=== PATIENT | male | born 1955 | race Two or more races ===

== ENCOUNTER 2019-03-06 11:22 | Inpatient (IN) | payer MEDICARE, OTHER ==
--- NOTE | 2019-03-06 11:39 | PDOC ---
History of Present Illness - General Stated Complaint: Chest Pain Time Seen by Provider: 03/06/19 11:39 - History of Present Illness Initial Comments: 64 year old male with PMH of HTN, HLD, and GERD presenting with acute left sided flank pain. He describes a left sharp pain radiating from his left mid back to his left flank and down is groin. He actually experiences this pain a few times per month and has received outpatient CT scans that are negative for nephroliths but did have note of fatty liver (previous alcoholic , sober 3 years) and right sided renal cyst. He also has dysuria approximately one time a month but denies hematuria. Deneis fevers, chills, nausea, vomiting, diarrhea, abdominal pain. 03/06/19 11:58 Past History - Past Medical History Allergies/Adverse Reactions: Allergies Allergy/AdvReac Type Severity Reaction Status Date / Time chlordiazepoxide HCl Allergy Verified 09/18/15 18:41 [From Librium] Home Medications: Ambulatory Orders Aspirin [ASA -] 81 mg PO DAILY 05/07/15 Alprazolam [Xanax] 1 mg PO TID PRN 03/06/19 Atorvastatin Ca [Lipitor] 20 mg PO HS 03/06/19 Budesonide/Formeterol Fumarate [SYMBICORT 160/4.5mcg -] 2 inh PO BID 03/06/19 Gabapentin 100 mg PO AM 03/06/19 Gabapentin 300 mg PO HS 03/06/19 Metformin HCl [Glucophage] 1,000 mg PO BID 03/06/19 Pantoprazole Sodium [Protonix] 40 mg PO DAILY 03/06/19 Sennosides [Senna -] 2 tab PO HS 03/06/19 Tamsulosin HCl [Flomax] 0.4 mg PO BID 03/06/19 Amlodipine Besylate [Norvasc -] 5 mg PO DAILY #30 tablet 03/07/19 Sitagliptin Phosphate [Januvia] 0.5 tab PO DAILY #30 tab 03/07/19 HTN: Yes - Immunization History Immunization Up to Date: Yes - Psycho Social/Smoking Cessation Hx Smoking Status: No Smoking History: Unknown if ever smoked Have you smoked in the past 12 months: No Number of Cigarettes Smoked Daily: 0 Cigars Per Day: 0 Hx Alcohol Use: Yes Drug/Substance Use Hx: No Substance Use Type: Alcohol Review of Systems - Review of Systems Constitutional: No: Chills, Diaphoresis, Fever HEENTM: No: Eye Pain, Blurred Vision, Tearing Respiratory: No: Cough, Orthopnea, Shortness of Breath Cardiac (ROS): No: Chest Pain, Edema, Irregular Heart Rate ABD/GI: Yes: Poor Appetite. No: Diarrhea, Nausea, Vomiting : Yes: Dysuria, Flank Pain. No: Burning, Discharge, Frequency, Hematuria, Incontinence Musculoskeletal: Yes: Back Pain. No: Joint Pain, Muscle Pain Integumentary: No: Bruising, Erythema, Flushing, Lesions Neurological: No: Headache, Numbness, Paresthesia Psychiatric: No: Anxiety, Depression Hematologic/Lymphatic: No: Anemia, Blood Clots, Easy Bleeding *Physical Exam - Physical Exam General Appearance: Yes: Nourished, Appropriately Dressed. No: Apparent Distress HEENT: positive: EOMI, PAMELA, Normal ENT Inspection, Normal Voice Neck: positive: Trachea midline, Normal Thyroid, Supple. negative: Tender, Rigid Respiratory/Chest: positive: Lungs Clear, Normal Breath Sounds. negative: Chest Tender, Respiratory Distress, Accessory Muscle Use Cardiovascular: positive: Regular Rhythm, Regular Rate Gastrointestinal/Abdominal: positive: Normal Bowel Sounds, Flat, Soft. negative : Tender Male Genitalia: positive: normal genitalia Lymphatic: negative: Adenopathy, Tenderness Musculoskeletal: positive: Normal Inspection, CVA Tenderness (left sided). negative: Decreased Range of Motion Extremity: positive: Normal Capillary Refill, Normal Inspection, Normal Range of Motion. negative: Tender Integumentary: positive: Normal Color, Dry, Warm ED Treatment Course - LABORATORY CBC & Chemistry Diagram: 03/07/19 06:50 03/07/19 06:50 Medical Decision Making - Medical Decision Making 64 year old male with PMH of HTN and remote EtOH abuse presenting with acute on chronic intermittent left flank/ back pain for the past few days. Given toradol without much relief. CT negative, UA negative. Labs corroborating ARIADNE (previous Cr four months prior 1.3 given verbally by CONTROL PANEL OPERATOR Louis Garcia). Patient's pain improved with Valium 5 PO but will admit for further renal workup given ariadne. 03/06/19 15:56 Discharge - Discharge Information Problems reviewed: Yes Clinical Impression/Diagnosis: ARIADNE (acute kidney injury) Condition: Stable Disposition: HOME - Admission Yes - Follow up/Referral - Patient Discharge Instructions - Post Discharge Activity
[2019-03-06] MEDS ORDERED: KETOROLAC TROMETHAMINE 30 MG/1 ML VIAL ONE (11:42)
[2019-03-06 13:03] LABS: URINE APPEARANCE CLEAR; URINE BILIRUBIN NEGATIVE (NEGATIVE); URINE COLOR YELLOW; URINE GLUCOSE (UA) NEGATIVE (NEGATIVE); URINE KETONE NEGATIVE (NEGATIVE); URINE LEUK ESTERASE NEGATIVE (NEGATIVE); URINE NITRITE NEGATIVE (NEGATIVE); URINE PROTEIN NEGATIVE (NEGATIVE); URINE UROBILINOGEN 0.2 mg/dL (0.2-1.0)
[2019-03-06 13:05] LABS: BASO % 0.4 % (0-2.0); EOS % 0.1 % (0-4.5); HEMATOCRIT 42.5 % (35.4-49); LYMPH % 8.3 % (8-40); MCHC 32.9 g/dl (32.0-35.9); MEAN CELL VOLUME 79.1 fl (80-96); MEAN PLT VOLUME 8.8 fl (7.5-11.1); MONO % 2.2 % (3.8-10.2); PLATELET COUNT 305 K/MM3 (134-434); RBC 5.38 M/mm3 (4.00-5.60); WHITE BLOOD COUNT 6.4 K/mm3 (4.0-10.0)
[2019-03-06 13:46] LABS: ALBUMIN 3.6 g/dl (3.4-5.0); ALK PHOS 71 U/L (45-117); ANION GAP 15 MMOL/L (8-16); BILIRUBIN,TOTAL 0.9 mg/dL (0.2-1); CALCIUM 9.3 mg/dL (8.5-10.1); CHLORIDE 102 mmol/L (98-107); CO2 19 mmol/L (21-32); CREATININE 1.9 mg/dL (0.55-1.3); GLUCOSE,RANDOM 131 mg/dL (74-106); POTASSIUM 3.8 mmol/L (3.5-5.1); SGOT/AST 11 U/L (15-37); SGPT/ALT 22 U/L (13-61); SODIUM 136 mmol/L (136-145); TOT PROT 7.5 g/dl (6.4-8.2)
--- NOTE | 2019-03-06 14:02 | PDOC ---
Documentation entered by Luc Rose SCRIBE, acting as scribe for Martin Melo MD. Martin Melo MD: This documentation has been prepared by the Milton monique Daniel, SCRIBE, under my direction and personally reviewed by me in its entirety. I confirm that the documentation accurately reflects all work, treatment, procedures, and medical decision making performed by me. Attending Attestation - Resident Resident Name: Monae Valdovinos - ED Attending Attestation I have performed the following: I have examined & evaluated the patient, The case was reviewed & discussed with the resident, I agree w/resident's findings & plan, Exceptions are as noted - HPI HPI: 03/06/19 13:11 The patient is a 64 year old male with a past medical history of HTN, HLD, and GERD here today for evaluation of left sided back and chest pain. Patient reports that he has had 6 years of intermittent left sided back pain which he attributes to his kidney. He notes that his current episode started 3 days ago, is getting worse, and describes it as intermittent left sided back and flank pain that is worse in the morning and wakes him from sleep. He also notes left sided non exertional intermittent chest pain and associated shortness of breath that started at the same time. Pt note extensive workup in the pas including muliple CTs, stress tests years ago mike were nomal. Patient denies headache, lightheadedness. Denies fever, chills. Denies nausea, vomiting, diarrhea. PCP: Abimael Goyal - Physicial Exam PE: 03/06/19 13:12 GENERAL: The patient is awake, alert, and fully oriented, Nontoxic - in no acute distress. HEAD: Normocephalic, atraumatic. EYES: extraocular movements intact, sclera anicteric, conjunctiva clear. ENT: Normal voice, Moist mucous membranes. NECK: Normal range of motion, supple LUNGS: Breath sounds equal, clear to auscultation bilaterally. No wheezes, no rhonchi, no rales. HEART: Regular rate and rhythm, without murmur, rub or gallop. ABDOMEN: Soft, nontender, No guarding, no rebound.No CVA tenderness EXTREMITIES: Normal range of motion, no edema. No cyanosis. No erythema, or tenderness. Pulses symmetric on radial/dp. NEUROLOGICAL: No facial assymetry, Normal speech, PSYCH: Normal mood, normal affect. SKIN: Warm, Dry, normal turgor - Medical Decision Making 03/06/19 13:03 64y M hx of htn, hl, gerd prsents wit hworsening L flank/chest pain - it got worse approx 3 days ago, pain is sharp/pressure like in nature. pt endorse ssome sob when he has the pain but denies any fever/chils,, nv, cough, gar, and notably the pain does not wosen with exertion. Pt denies any numbnes/tingling/ ewakness. Pt endorses dysuria for a fw months ddx - consider possible kidney stone, msk pain, diverticulitis, acs consider ao dissecton - however pts b/l BP is similar (149/89, 156/86), also his symptoms are highly atypical of dissection will obtain labs, ct abd, ekg will erassess pt feeling better after toradol from EMS 03/06/19 16:05 labs reviwed Pts labs noted for warren ct noted thickened bladder wall but UA not suggestive of UTI/cystitis will admit for futher mngement and wokup of his pain Heart Score/ECG Review - ECG Impressions Comment:: 03/06/19 13:08 Twelve-lead EKG was performed and reviewed by me. There is normal sinus rhythm with a normal rate. Rate of 72 The axis is normal. The intervals are normal. There is normal R wave progression There are no ST or T wave abnormalities. Impression: Normal twelve-lead EKG
[2019-03-06] MEDS ORDERED: SODIUM CHLORIDE 0.9% 500 ML INFUS.BAG IV ONE (14:15)
[2019-03-06] MEDS ORDERED: diazePAM 2 MG TABLET PO ONE (14:50)
[2019-03-06] MEDS ORDERED: diazePAM 2 MG TABLET ONE (14:59)
--- NOTE | 2019-03-06 16:14 | EKG ---
Test Reason : Blood Pressure : / mmHG Vent. Rate : 072 BPM Atrial Rate : 072 BPM P-R Int : 134 ms QRS Dur : 084 ms QT Int : 398 ms P-R-T Axes : 043 035 047 degrees QTc Int : 435 ms NORMAL SINUS RHYTHM NORMAL ECG WHEN COMPARED WITH ECG OF 07-MAY-2015 12:42, NO SIGNIFICANT CHANGE WAS FOUND Confirmed by MARIIA ZEPEDA MD ([id number]) on 03/06/2019 4:13:40 PM Referred By: Confirmed By:MARIIA ZEPEDA MD
--- NOTE | 2019-03-06 17:35 | PN ---
Progress Note, Physician - Objective Vital Signs: Vital Signs Temperature 97.6 F 03/06/19 11:25 Pulse Rate 75 03/06/19 11:25 Respiratory Rate 20 03/06/19 11:25 Blood Pressure 142/70 03/06/19 11:25 O2 Sat by Pulse Oximetry (%) 100 03/06/19 11:25 Labs: CBC, BMP 03/06/19 12:35 03/06/19 12:35
[2019-03-06] MEDS ORDERED: SODIUM CHLORIDE 1,000 ML IV SCH (17:45)
--- NOTE | 2019-03-06 18:08 | HP ---
Admitting History and Physical - Primary Care Physician PCP: Abimael Goyal - Admission Chief Complaint: left flank pain History of Present Illness: 64 year old male with PMH of HTN, HLD, and GERD presenting with acute left sided flank pain. He describes the pain as sharp radiating from his left mid back to his left flank to groin. He has had similar pain and underwent w/u that was unremarkable for nephroliths but did have note of fatty liver (previous alcoholic , sober 3 years) and right sided renal cyst. He also has dysuria approximately one time a month but denies hematuria-takes flomax at home. Deneis fevers, chills, nausea, vomiting, diarrhea, abdominal pain. Of note his ACr was 1.9 with baseline 1.0-1.3. History Source: Patient Limitations to Obtaining History: No Limitations - Past Medical History Cardiovascular: Yes: HTN, Hyperlipdemia Gastrointestinal: Yes: GERD - Smoking History Smoking history: Never smoked Have you smoked in the past 12 months: No Aproximately how many cigarettes per day: 0 - Alcohol/Substance Use Hx Alcohol Use: Yes (sober x 3 yrs) History of Substance Use: reports: None - Social History Usual Living Arrangement: Yes: Alone Do you think of yourself as: Straight/Heterosexual ADL: Independent Occupation: unemployed History of Recent Travel: No Home Medications - Allergies Allergies/Adverse Reactions: Allergies Allergy/AdvReac Type Severity Reaction Status Date / Time chlordiazepoxide HCl Allergy Verified 09/18/15 18:41 [From Librium] - Home Medications Home Medications: Ambulatory Orders Aspirin [ASA -] 81 mg PO DAILY 05/07/15 Hydrochlorothiazide [Hctz -] 25 mg PO DAILY 05/07/15 Alprazolam [Xanax] 1 mg PO TID PRN 03/06/19 Atorvastatin Ca [Lipitor] 20 mg PO HS 03/06/19 Budesonide/Formeterol Fumarate [SYMBICORT 160/4.5mcg -] 2 inh PO BID 03/06/19 Gabapentin 100 mg PO AM 03/06/19 Gabapentin 300 mg PO HS 03/06/19 Glipizide [Glipizide ER] 5 mg PO BID 03/06/19 Metformin HCl [Glucophage] 1,000 mg PO BID 03/06/19 Pantoprazole Sodium [Protonix] 40 mg PO DAILY 03/06/19 Ramipril 5 mg PO DAILY 03/06/19 Sennosides [Senna] 2 tab PO HS 03/06/19 Sitagliptin Phosphate [Januvia] 1 tab PO DAILY 03/06/19 Tamsulosin HCl [Flomax] 0.4 mg PO BID 03/06/19 Family Medical History Family History: Denies Review of Systems - Review of Systems Constitutional: reports: No Symptoms Eyes: reports: No Symptoms HENT: reports: No Symptoms Neck: reports: No Symptoms Cardiovascular: reports: No Symptoms Respiratory: reports: No Symptoms Gastrointestinal: reports: Abdominal Pain (left lower quad pain) Genitourinary: reports: Dysuria, Flank Pain (left), Other (pain radiating to groin) Breasts: reports: No Symptoms Reported Musculoskeletal: reports: Back Pain (left mid back to flank) Integumentary: reports: No Symptoms Neurological: reports: No Symptoms Endocrine: reports: No Symptoms Hematology/Lymphatic: reports: No Symptoms Psychiatric: reports: No Symptoms Pain Intensity: 7 Physical Examination Vital Signs: Vital Signs Temperature 97.6 F 03/06/19 11:25 Pulse Rate 75 03/06/19 11:25 Respiratory Rate 20 03/06/19 11:25 Blood Pressure 142/70 03/06/19 11:25 O2 Sat by Pulse Oximetry (%) 100 03/06/19 11:25 Constitutional: Yes: Well Nourished, No Distress, Calm Eyes: Yes: WNL, Conjunctiva Clear, EOM Intact HENT: Yes: WNL, Atraumatic, Normocephalic Neck: Yes: WNL, Supple, Trachea Midline Cardiovascular: Yes: WNL, Regular Rate and Rhythm Respiratory: Yes: WNL, Regular, CTA Bilaterally Gastrointestinal: Yes: WNL, Normal Bowel Sounds ...Rectal Exam: Yes: Deferred Renal/: Yes: CVA Tenderness - Left, Other (TTP left flank to mid back) Musculoskeletal: Yes: Back Pain Extremities: Yes: WNL Edema: No Peripheral Pulses WNL: Yes Peripheral Pulses: Left Radial: 2+, Right Radial: 2+, Left Doralis Pedis: 2+, Right Dorsalis Pedis: 2+, Left Femoral: 2+, Right Femoral: 2+ Integumentary: Yes: WNL Neurological: Yes: WNL, Alert, Oriented ...Motor Strength: WNL Psychiatric: Yes: WNL Labs: CBC, BMP 03/06/19 12:35 03/06/19 12:35 Imaging - Results Cat Scan: Report Reviewed (No urinary calculi or obstructive uropathy, thickened all bladder, cystitis can not be excluded. No acute pathology in abd or pelvis) Ultrasound: Report Reviewed (No hydro, no calculi, right renal upper pole cyct noted) EKG: Report Reviewed (NSR, QTc 435, no ischemic changes) Problem List - Problems (1) HLD (hyperlipidemia) Assessment/Plan: c/w atorvastatin Code(s): E78.5 - HYPERLIPIDEMIA, UNSPECIFIED (2) GERD (gastroesophageal reflux disease) Assessment/Plan: c/w protonix Code(s): K21.9 - GASTRO-ESOPHAGEAL REFLUX DISEASE WITHOUT ESOPHAGITIS (3) H/O ETOH abuse Assessment/Plan: completed detox sober x 3 years Code(s): F10.11 - ALCOHOL ABUSE, IN REMISSION (4) ARIADNE (acute kidney injury) Assessment/Plan: Cr 1.9 from baseline of .9-1.2 additional 1L NS ordered and will cont @ 125 after avoid nephrotoxic agents will hold ramapril if cr does not decrease with hydration will consult nephrology pt has seen Dr Brandon in the past, will consult in am if pain persists/cr cont to increase Code(s): N17.9 - ACUTE KIDNEY FAILURE, UNSPECIFIED (5) HTN (hypertension) Assessment/Plan: hold ramapril with elevated Cr Code(s): I10 - ESSENTIAL (PRIMARY) HYPERTENSION Qualifiers: Hypertension type: essential hypertension Qualified Code(s): I10 - Essential (primary) hypertension (6) Prophylactic measure Assessment/Plan: FEN IV bolus 1L given in ED, will repeat another 1L bolus IVF @ 100cc/hr arter bolous monitor electrolytes and replete as needed low fat/chol diet NPO after mn if further testing is needed DVT low risk early ambulation Dispo admit to Dr Goyal to med/surg bed full code discharge planning Code(s): Z29.9 - ENCOUNTER FOR PROPHYLACTIC MEASURES, UNSPECIFIED (7) Diabetes Assessment/Plan: on oral hypoglycemic at home will hold until taking full PO BGM AC/HS with novolog sliding scale Code(s): E11.9 - TYPE 2 DIABETES MELLITUS WITHOUT COMPLICATIONS Visit type - Emergency Visit Emergency Visit: Yes ED Registration Date: 03/06/19 Care time: The patient presented to the Emergency Department on the above date and was hospitalized for further evaluation of their emergent condition. - New Patient This patient is new to me today: Yes Date on this admission: 03/06/19 - Critical Care Critical Care patient: No
[2019-03-06] MEDS ORDERED: SODIUM CHLORIDE 1,000 ML IV STA (18:28)
[2019-03-06] MEDS: ALBUTEROL SO4 2.5/IPRATROPIUM 0.5 INH SOL 3 ML VIAL.NEB. NEB SCH (21:10)
[2019-03-06] MEDS: SODIUM CHLORIDE 1,000 ML IV SCH (21:40)
[2019-03-06] MEDS: INSULIN SLIDING SCALE (NOVOLOG) 1 VIAL SQ SCH (21:41)
[2019-03-06] MEDS: TAMSULOSIN HCL 0.4 MG CAP PO SCH (21:41)
[2019-03-06] MEDS ORDERED: ATORVASTATIN CA 20 MG TABLET (FP) PO SCH (22:00)
[2019-03-06] MEDS ORDERED: SENNOSIDES 8.6MG TABLET (FP) PO SCH (22:00)
[2019-03-06] MEDS: BUDESONIDE/FORMETEROL FUMARATE 160/4.5 mcg INHALER IH SCH (22:05)
[2019-03-07] MEDS: ALBUTEROL SO4 2.5/IPRATROPIUM 0.5 INH SOL 3 ML VIAL.NEB. NEB SCH ×4 (00:01→12:06)
[2019-03-07 00:03] VITALS: BMI 33.4
[2019-03-07] MEDS: SODIUM CHLORIDE 1,000 ML IV SCH (06:00)
[2019-03-07] MEDS: INSULIN SLIDING SCALE (NOVOLOG) 1 VIAL SQ SCH ×2 (07:02→11:43)
[2019-03-07 08:21] LABS: BASO % 0.3 % (0-2.0); EOS % 1.1 % (0-4.5); HEMATOCRIT 37.7 % (35.4-49); HEMOGLOBIN 12.5 GM/dL (11.7-16.9); LYMPH % 21.5 % (8-40); MCH 26.3 pg (25.7-33.7); MCHC 33.1 g/dl (32.0-35.9); MEAN CELL VOLUME 79.6 fl (80-96); MEAN PLT VOLUME 8.8 fl (7.5-11.1); MONO % 8.1 % (3.8-10.2); PLATELET COUNT 254 K/MM3 (134-434); RBC 4.73 M/mm3 (4.00-5.60); RDW 15.8 % (11.9-15.9); WHITE BLOOD COUNT 8.7 K/mm3 (4.0-10.0)
[2019-03-07 08:34] LABS: INR 1.11 (0.83-1.09); PROTHROMBIN TIME (PATIENT) 13.1 SEC (9.7-13.0)
[2019-03-07 09:06] LABS: ALBUMIN 3.1 g/dl (3.4-5.0); BILIRUBIN,TOTAL 0.7 mg/dL (0.2-1); BLOOD UREA NITROGEN 27.1 mg/dL (7-18); CALCIUM 8.6 mg/dL (8.5-10.1); CREATININE 1.3 mg/dL (0.55-1.3); MAGNESIUM 1.7 mg/dL (1.8-2.4); POTASSIUM 3.5 mmol/L (3.5-5.1); TOT PROT 6.4 g/dl (6.4-8.2)
[2019-03-07] MEDS ORDERED: PT OWN MED DRAWER 7, Y5N ONE (09:45)
[2019-03-07] MEDS: TAMSULOSIN HCL 0.4 MG CAP PO SCH (09:46)
[2019-03-07] MEDS: BUDESONIDE/FORMETEROL FUMARATE 160/4.5 mcg INHALER IH SCH (09:49)
[2019-03-07] MEDS ORDERED: FLU VACCINE QUAD 60 MCG/0.5 ML (MDV 19-20) IM ONE (10:00)
[2019-03-07] MEDS ORDERED: PANTOPRAZOLE 40 MG TABLET (FP) PO SCH (10:00)
[2019-03-07] MEDS ORDERED: ASPIRIN 81 MG CHEWABLE TABLETS PO SCH (10:00)
[2019-03-07] MEDS ORDERED: SODIUM CHLORIDE 1,000 ML IV SCH (10:43)
[2019-03-07] MEDS ORDERED: ALPRAZolam 1 MG TABLET PO PRN (10:43)
--- NOTE | 2019-03-07 10:49 | PN ---
Progress Note, Physician Chief Complaint: Left CVA pain ARIADNE History of Present Illness: NAD Pain is improved He feels mild pain in left flank as well Wants to go home and f/u with Dr Gupta CT abd/pelvis+ renal U/S unremarkable Has had these pains for years - Current Medication List Current Medications: Active Medications Albuterol/Ipratropium (Duoneb -) 1 amp NEB RQ4H [facility] Last Admin: 03/07/19 08:19 Dose: 1 amp Alprazolam (Xanax) 1 mg PO TID PRN PRN Reason: ANXIETY Aspirin (Asa -) 81 mg PO DAILY [facility] Last Admin: 03/07/19 09:46 Dose: 81 mg Atorvastatin Calcium (Lipitor -) 20 mg PO HS [facility] Last Admin: 03/06/19 21:41 Dose: 20 mg Budesonide/Formoterol Fumarate (Symbicort 160/4.5mcg -) 2 puff IH BID [facility] Last Admin: 03/07/19 09:49 Dose: 2 puff Gabapentin (Neurontin -) 100 mg PO AM TIANNA Gabapentin (Neurontin -) 300 mg PO HS [facility] Sodium Chloride (Normal Saline -) 1,000 mls @ 75 mls/hr IV ASDIR [facility] Insulin Aspart (Novolog Vial Sliding Scale -) 1 vial SQ ACHS [facility]; Protocol Last Admin: 03/07/19 07:02 Dose: Not Given Pantoprazole Sodium (Protonix -) 40 mg PO DAILY [facility] Last Admin: 03/07/19 09:46 Dose: 40 mg Senna (Senna -) 2 tab PO HS [facility] Last Admin: 03/06/19 21:41 Dose: 2 tab Sitagliptin Phosphate (Januvia -) mg PO DAILY [facility] Tamsulosin HCl (Flomax -) 0.4 mg PO BID [facility] Last Admin: 03/07/19 09:46 Dose: 0.4 mg - Objective Vital Signs: Vital Signs Temperature 99 F 03/07/19 09:41 Pulse Rate 70 03/07/19 09:41 Respiratory Rate 20 03/07/19 09:41 Blood Pressure 147/76 03/07/19 09:41 O2 Sat by Pulse Oximetry (%) 96 03/06/19 19:46 Constitutional: Yes: Well Nourished, No Distress, Calm Cardiovascular: Yes: Regular Rate and Rhythm Respiratory: Yes: Regular Gastrointestinal: Yes: WNL Genitourinary: Yes: WNL Musculoskeletal: Yes: WNL Extremities: Yes: WNL Edema: No Peripheral Pulses WNL: Yes Neurological: Yes: Alert, Oriented Psychiatric: Yes: Alert, Oriented Labs: CBC, BMP 03/07/19 06:50 03/07/19 06:50 INR, PTT INR 1.11 (0.83-1.09) H 03/07/19 06:50 Problem List - Problems (1) ARIADNE (acute kidney injury) Assessment/Plan: -Cr improved, at baseline -Continue IVF at lower rate at 75cc/hr -Encouraged PO fluids -Labs outpatient -Urology consult -D/C HCTZ + Ramipril outpatient med -Will start amlodipine 5 mg po daily Problems reviewed: Yes Code(s): N17.9 - ACUTE KIDNEY FAILURE, UNSPECIFIED (2) Diabetes Assessment/Plan: -BGM AC HS -A1c at 5.8 -Decrease Januvia to 50 mg po daily -D/C glipizide -Diabetic low sodium diet Problems reviewed: Yes Code(s): E11.9 - TYPE 2 DIABETES MELLITUS WITHOUT COMPLICATIONS (3) H/O ETOH abuse Problems reviewed: Yes Code(s): F10.11 - ALCOHOL ABUSE, IN REMISSION (4) Anxiety Assessment/Plan: -Continue alprazolam Problems reviewed: Yes Code(s): F41.9 - ANXIETY DISORDER, UNSPECIFIED (5) Flank pain, chronic Assessment/Plan: -Intermittent from past 6 years -Urology eval -CT abd/pelvis, no acute pathology, cystitis couldn't be ruled out -Check UC -Pt will f/u with Dr Gupta o/p -Encouraged PO fluids Problems reviewed: Yes Code(s): R10.9 - UNSPECIFIED ABDOMINAL PAIN; G89.29 - OTHER CHRONIC PAIN Assessment/Plan see problem list
[2019-03-07] MEDS ORDERED: ACETAMINOPHEN 325 MG TABLET (FP) PO PRN (12:39)
[2019-03-07 15:12] VITALS: BP 134/71; PULSE 77; TEMP 98.5
[2019-03-07] MEDS ORDERED: GABAPENTIN 100 MG CAPSULE (FP) PO SCH (22:00)
[2019-03-08] MEDS ORDERED: GABAPENTIN 100 MG CAPSULE (FP) PO SCH (07:00)
== END 2019-03-07 15:29 | disposition home or self-care (01) | DRG 684 ==
LOC: JER 11:22 → JERBED 15:54 → J5S 18:41
PROVIDERS: ADMIT Family Medicine; ATTEND Family Medicine
DX: N17.9 Acute kidney failure, unspecified (principal); I10 Essential (primary) hypertension; E78.5 Hyperlipidemia, unspecified; K21.9 Gastro-esophageal reflux disease without esophagitis; E11.9 Type 2 diabetes mellitus without complications; R10.9 Unspecified abdominal pain; N28.1 Cyst of kidney, acquired; F10.11 Alcohol abuse, in remission
CPT/HCPCS: 36415; 71045-TC-FY; 74176-TC; 76775-TC; 80053; 81003; 82150; 82962; 83036; 83690; 83735; 84484; 85025; 85610; 87086; 87186; 93005; 93010; 94640; 99285-25; J7030

== ENCOUNTER 2020-07-17 10:57 | Inpatient (IN) | payer MEDICARE, OTHER ==
[2020-07-17 12:42] LABS: BASO % 0.9 % (0-2.0); EOS % 0.8 % (0-4.5); HEMOGLOBIN 12.6 GM/dL (11.7-16.9); LYMPH % 7.8 % (8-40); MCH 25.4 pg (25.7-33.7); MEAN CELL VOLUME 74.8 fl (80-96); MEAN PLT VOLUME 8.3 fl (7.5-11.1); MONO % 12.4 % (3.8-10.2); NEUT % 78.1 % (42.8-82.8); PLATELET COUNT 589 K/MM3 (134-434); RBC 4.94 M/mm3 (4.00-5.60); RDW 15.6 % (11.9-15.9); WHITE BLOOD COUNT 10.6 K/mm3 (4.0-10.0)
[2020-07-17 12:58] LABS: CHLORIDE 104 mmol/L (98-107); SODIUM 136 mmol/L (136-145)
[2020-07-17 13:01] LABS: ANION GAP 8 MMOL/L (8-16); BLOOD UREA NITROGEN 12.9 mg/dL (7-18); CALCIUM 8.4 mg/dL (8.5-10.1); CO2 24 mmol/L (21-32); LIPASE 165 U/L (73-393)
[2020-07-17 13:02] LABS: GLUCOSE,RANDOM 115 mg/dL (74-106); MAGNESIUM 2.1 mg/dL (1.8-2.4)
[2020-07-17 13:03] LABS: ACTIVATED PTT 31.6 SECONDS (25.2-36.5); INR 1.4 (0.83-1.09); PROTHROMBIN TIME (PATIENT) 16.8 SEC (9.7-13.0)
[2020-07-17 13:04] LABS: CREATININE 1.1 mg/dL (0.55-1.3); SGOT/AST 331 U/L (15-37); SGPT/ALT 196 U/L (13-61)
[2020-07-17 13:05] LABS: BILIRUBIN,TOTAL 1.6 mg/dL (0.2-1)
[2020-07-17 13:06] LABS: ALK PHOS 196 U/L (45-117)
[2020-07-17 13:09] LABS: N-TERMINAL BNP 418.8 pg/ml (5-125)
[2020-07-17] MEDS ORDERED: DEXAMETHASONE SOD PHOSPHATE 4 MG/1 ML VIAL IVPUSH ONE (13:28)
[2020-07-17] MEDS ORDERED: DEXAMETHASONE SOD PHOSPHATE 10 MG/1 ML VIAL ONE (13:52)
[2020-07-17 14:30] LABS: PLATELET ESTIMATE SLT INCREASE
[2020-07-17 14:32] LABS: LDH 631 U/L (87-246)
[2020-07-17 15:03] LABS: EPI CELLS 7 /uL (0-25.1); HYALINE CASTS 1 /uL (0-3.1); URINE APPEARANCE CLEAR; URINE BACTERIA 1200 /uL (0-1359); URINE BILIRUBIN NEGATIVE (NEGATIVE); URINE COLOR DK YELLOW; URINE GLUCOSE (UA) NEGATIVE (NEGATIVE); URINE KETONE NEGATIVE (NEGATIVE); URINE LEUK ESTERASE NEGATIVE (NEGATIVE); URINE NITRITE NEGATIVE (NEGATIVE); URINE PROTEIN 1+ (NEGATIVE); URINE RBC 51 /uL (0-23.9); URINE UROBILINOGEN 4.0 E.U/dl mg/dL (0.2-1.0); URINE WBC 13 /uL (0-25.8)
[2020-07-18 07:29] LABS: BASO % 0.4 % (0-2.0); EOS % 0.1 % (0-4.5); HEMATOCRIT 35.8 % (35.4-49); LYMPH % 8.7 % (8-40); MCH 25.1 pg (25.7-33.7); MCHC 33.4 g/dl (32.0-35.9); MEAN CELL VOLUME 75.1 fl (80-96); MEAN PLT VOLUME 8.4 fl (7.5-11.1); MONO % 7.7 % (3.8-10.2); NEUT % 83.1 % (42.8-82.8); PLATELET COUNT 541 K/MM3 (134-434); RBC 4.78 M/mm3 (4.00-5.60); RDW 15.4 % (11.9-15.9); WHITE BLOOD COUNT 10.1 K/mm3 (4.0-10.0)
[2020-07-18 07:58] LABS: POTASSIUM 4.4 mmol/L (3.5-5.1)
[2020-07-18 08:01] LABS: CALCIUM 8.6 mg/dL (8.5-10.1)
[2020-07-18 08:02] LABS: ALBUMIN 2.1 g/dl (3.4-5.0); BLOOD UREA NITROGEN 16.9 mg/dL (7-18); MAGNESIUM 2.2 mg/dL (1.8-2.4)
[2020-07-18 08:05] LABS: PHOSPHOROUS 3.3 mg/dL (2.5-4.9)
[2020-07-18 08:06] LABS: BILIRUBIN,TOTAL 0.9 mg/dL (0.2-1)
[2020-07-18 08:07] LABS: TOT PROT 7.9 g/dl (6.4-8.2)
[2020-07-18] MEDS ORDERED: ENOXAPARIN NA (PORCINE) 40 MG/0.4 ML DISP.SYRIN SQ ONE (09:25)
[2020-07-18] MEDS: ENOXAPARIN NA (PORCINE) 40 MG/0.4 ML DISP.SYRIN SQ SCH (09:32)
[2020-07-18 10:33] LABS: ANISOCYTOSIS 1+; MACROCYTOSIS 0; PLATELET ESTIMATE INCREASED
[2020-07-18] MEDS ORDERED: LORazepam 2 MG TABLET PO ONE (10:34)
[2020-07-18] MEDS ORDERED: ASCORBIC ACID 500 MG TABLET (FP) ONE (10:47)
[2020-07-18] MEDS ORDERED: CEFTRIAXONE 1 GM/50 ML BAG ONE (10:48)
[2020-07-18] MEDS ORDERED: AZITHROMYCIN IVPB 500 MG/250 ML BAG IVPB ONE (10:48)
[2020-07-18] MEDS ORDERED: ZINC SULFATE 220 MG CAPSULE (FP) ONE (10:48)
[2020-07-18] MEDS: ZINC SULFATE 220 MG CAPSULE (FP) PO SCH (11:03)
[2020-07-18] MEDS: ASCORBIC ACID 500 MG TABLET (FP) PO SCH ×2 (11:04→22:20)
[2020-07-18] MEDS: CEFTRIAXONE 1,000 MG in DEXTROSE 5%-WATER - 50 ML IVPB SCH (11:04)
[2020-07-18] MEDS ORDERED: DEXAMETHASONE SOD PHOSPHATE 4 MG/1 ML VIAL ONE (11:37)
[2020-07-18] MEDS: AZITHROMYCIN IVPB 500 MG in DEXTROSE 5%-WATER - 250 ML IVPB SCH (12:54)
[2020-07-18] MEDS: DEXAMETHASONE SOD PHOSPHATE 4 MG/1 ML VIAL IVPUSH SCH (12:55)
[2020-07-18 20:24] VITALS: BMI 32.2
[2020-07-19] MEDS ORDERED: ALPRAZolam 1 MG TABLET PO PRN (09:48)
[2020-07-19] MEDS ORDERED: PT OWN MED DRAWER 7, Y5N ONE (11:00)
[2020-07-19] MEDS: ENOXAPARIN NA (PORCINE) 40 MG/0.4 ML DISP.SYRIN SQ SCH (11:05)
[2020-07-19] MEDS: DEXAMETHASONE SOD PHOSPHATE 4 MG/1 ML VIAL IVPUSH SCH (11:06)
[2020-07-19] MEDS: ASCORBIC ACID 500 MG TABLET (FP) PO SCH ×2 (11:06→21:16)
[2020-07-19] MEDS: ZINC SULFATE 220 MG CAPSULE (FP) PO SCH (11:06)
[2020-07-19] MEDS ORDERED: guaiFENesin/D-METHORPHAN HB 10 ML UNIT-DOSE CUPS PO PRN (11:40)
[2020-07-19 11:59] LABS: BASO % 0.4 % (0-2.0); HEMATOCRIT 37.5 % (35.4-49); HEMOGLOBIN 12.3 GM/dL (11.7-16.9); LYMPH % 8.6 % (8-40); MCH 24.6 pg (25.7-33.7); MCHC 32.8 g/dl (32.0-35.9); MEAN CELL VOLUME 75.1 fl (80-96); MEAN PLT VOLUME 8.3 fl (7.5-11.1); MONO % 12.2 % (3.8-10.2); NEUT % 78.8 % (42.8-82.8); PLATELET COUNT 566 K/MM3 (134-434); RBC 4.99 M/mm3 (4.00-5.60); RDW 15.7 % (11.9-15.9); WHITE BLOOD COUNT 11.5 K/mm3 (4.0-10.0)
[2020-07-19] MEDS ORDERED: AZITHROMYCIN IVPB 500 MG/250 ML BAG IVPB SCH (12:03)
[2020-07-19] MEDS ORDERED: CEFTRIAXONE 1 GM in DEXTROSE 5%-WATER - 50 ML IVPB SCH (12:05)
[2020-07-19] MEDS ORDERED: cefTRIAXone SODIUM 1 GM VIAL ONE (12:11)
[2020-07-19] MEDS ORDERED: DEXTROSE 5%-WATER - 50 ML IVPB ONE (12:11)
[2020-07-19 12:19] LABS: POTASSIUM 4.2 mmol/L (3.5-5.1)
[2020-07-19 12:20] LABS: ALBUMIN 2.2 g/dl (3.4-5.0); BLOOD UREA NITROGEN 24.6 mg/dL (7-18); CALCIUM 8.9 mg/dL (8.5-10.1)
[2020-07-19 12:24] LABS: CREATININE 0.9 mg/dL (0.55-1.3)
[2020-07-19 12:26] LABS: BILIRUBIN,TOTAL 0.6 mg/dL (0.2-1); TOT PROT 7.8 g/dl (6.4-8.2)
[2020-07-19] MEDS: URSODIOL 300 MG CAPSULE PO SCH ×2 (12:28→21:15)
[2020-07-19] MEDS: TAMSULOSIN HCL 0.4 MG CAP PO SCH ×2 (12:28→21:16)
[2020-07-19] MEDS: PANTOPRAZOLE 40 MG TABLET PO SCH (12:28)
[2020-07-19] MEDS: ASPIRIN 81 MG CHEWABLE TABLETS PO SCH (12:28)
[2020-07-19] MEDS: amLODIPine BESYLATE 5 MG TABLET (FP) PO SCH (12:29)
[2020-07-19] MEDS: BUDESONIDE/FORMETEROL FUMARATE 160/4.5 mcg INHALER IH SCH ×2 (12:33→21:15)
[2020-07-19] MEDS: CEFTRIAXONE 1,000 MG in DEXTROSE 5%-WATER - 50 ML IVPB SCH (12:33)
[2020-07-19] MEDS: AZITHROMYCIN IVPB 500 MG in DEXTROSE 5%-WATER - 250 ML IVPB SCH (12:33)
[2020-07-19 12:49] LABS: ANISOCYTOSIS 0; MACROCYTOSIS 0; PLATELET ESTIMATE INCREASED
[2020-07-19 18:55] LABS: METHADONE, UR NEGATIVE ng/ml (CUTOFF=300); OPIATES, URI NEGATIVE ng/ml (CUTOFF=300); URINE BARBITURATES NEGATIVE ng/ml (CUTOFF=200)
[2020-07-19 18:56] LABS: COCAINE, UR NEGATIVE ng/ml (CUTOFF=300); PHENCYCLIDINE,URINE NEGATIVE ng/ml (CUTOFF=25)
[2020-07-19 19:05] LABS: URINE AMPHETAMINES NEGATIVE ng/ml (CUTOFF=500)
[2020-07-19 19:07] LABS: URINE BENZODIAZEPINES POSITIVE ng/ml (CUTOFF=200)
[2020-07-19] MEDS: ATORVASTATIN CA 20 MG TABLET (FP) PO SCH (21:16)
[2020-07-19] MEDS: SENNOSIDES 8.6MG TABLET (FP) PO SCH (21:16)
[2020-07-19] MEDS: GABAPENTIN 100 MG CAPSULE PO SCH (21:16)
[2020-07-20] MEDS: GABAPENTIN 100 MG CAPSULE PO SCH ×2 (06:11→22:07)
[2020-07-20] MEDS ORDERED: PT OWN MED DRAWER 7, Y5N ONE (10:05)
[2020-07-20] MEDS: amLODIPine BESYLATE 5 MG TABLET (FP) PO SCH (10:09)
[2020-07-20] MEDS: PANTOPRAZOLE 40 MG TABLET PO SCH (10:09)
[2020-07-20] MEDS: TAMSULOSIN HCL 0.4 MG CAP PO SCH ×2 (10:09→22:07)
[2020-07-20] MEDS: BUDESONIDE/FORMETEROL FUMARATE 160/4.5 mcg INHALER IH SCH ×2 (10:09→22:08)
[2020-07-20] MEDS: ASCORBIC ACID 500 MG TABLET (FP) PO SCH ×2 (10:09→22:07)
[2020-07-20] MEDS: ASPIRIN 81 MG CHEWABLE TABLETS PO SCH (10:09)
[2020-07-20] MEDS: URSODIOL 300 MG CAPSULE PO SCH ×2 (10:09→22:07)
[2020-07-20] MEDS: ZINC SULFATE 220 MG CAPSULE (FP) PO SCH (10:09)
[2020-07-20] MEDS: DEXAMETHASONE SOD PHOSPHATE 4 MG/1 ML VIAL IVPUSH SCH (10:10)
[2020-07-20] MEDS: ENOXAPARIN NA (PORCINE) 40 MG/0.4 ML DISP.SYRIN SQ SCH (10:10)
[2020-07-20] MEDS: SENNOSIDES 8.6MG TABLET (FP) PO SCH (22:07)
[2020-07-20] MEDS: ATORVASTATIN CA 20 MG TABLET (FP) PO SCH (22:07)
[2020-07-21] MEDS: GABAPENTIN 100 MG CAPSULE PO SCH (06:02)
[2020-07-21] MEDS ORDERED: PT OWN MED DRAWER 7, Y5N ONE (09:36)
[2020-07-21] MEDS: DEXAMETHASONE SOD PHOSPHATE 4 MG/1 ML VIAL IVPUSH SCH (10:28)
[2020-07-21] MEDS: ENOXAPARIN NA (PORCINE) 40 MG/0.4 ML DISP.SYRIN SQ SCH (10:28)
[2020-07-21] MEDS: BUDESONIDE/FORMETEROL FUMARATE 160/4.5 mcg INHALER IH SCH ×2 (10:29→22:31)
[2020-07-21] MEDS: ZINC SULFATE 220 MG CAPSULE (FP) PO SCH (10:29)
[2020-07-21] MEDS: URSODIOL 300 MG CAPSULE PO SCH ×2 (10:29→22:31)
[2020-07-21] MEDS: amLODIPine BESYLATE 5 MG TABLET (FP) PO SCH (10:29)
[2020-07-21] MEDS: ASCORBIC ACID 500 MG TABLET (FP) PO SCH ×2 (10:29→22:31)
[2020-07-21] MEDS: PANTOPRAZOLE 40 MG TABLET PO SCH (10:29)
[2020-07-21] MEDS: ASPIRIN 81 MG CHEWABLE TABLETS PO SCH (10:29)
[2020-07-21] MEDS: LISINOPRIL 5 MG TABLET PO SCH (10:37)
[2020-07-21 12:26] LABS: BASO % 0.4 % (0-2.0); EOS % 0.3 % (0-4.5); HEMATOCRIT 38.1 % (35.4-49); HEMOGLOBIN 12.6 GM/dL (11.7-16.9); LYMPH % 13.5 % (8-40); MCH 24.9 pg (25.7-33.7); MCHC 33.1 g/dl (32.0-35.9); MEAN CELL VOLUME 75.1 fl (80-96); MEAN PLT VOLUME 8.2 fl (7.5-11.1); MONO % 12.7 % (3.8-10.2); NEUT % 73.1 % (42.8-82.8); PLATELET COUNT 551 K/MM3 (134-434); RBC 5.08 M/mm3 (4.00-5.60); RDW 15.5 % (11.9-15.9); WHITE BLOOD COUNT 12.5 K/mm3 (4.0-10.0)
[2020-07-21 12:32] LABS: POTASSIUM 4.1 mmol/L (3.5-5.1)
[2020-07-21 12:35] LABS: CALCIUM 8.7 mg/dL (8.5-10.1)
[2020-07-21 12:36] LABS: ALBUMIN 2.4 g/dl (3.4-5.0); BLOOD UREA NITROGEN 25.4 mg/dL (7-18)
[2020-07-21 12:38] LABS: CREATININE 1.2 mg/dL (0.55-1.3)
[2020-07-21 12:39] LABS: BILIRUBIN,TOTAL 0.6 mg/dL (0.2-1)
[2020-07-21 12:40] LABS: TOT PROT 7.7 g/dl (6.4-8.2)
[2020-07-21 14:10] LABS: ANISOCYTOSIS 0; HELMET CELLS 0; HOWELL-JOLLY BODIES 0; MACROCYTOSIS 0; OVALOCYTE 0; PLATELET ESTIMATE INCREASED; ROULEAU 0; SICKELED CELLS 0; TARGET CELLS 0; TEAR DROP CELLS 0; TOXIC GRANULATION 0
[2020-07-21] MEDS: SENNOSIDES 8.6MG TABLET (FP) PO SCH (22:31)
[2020-07-22] MEDS ORDERED: PT OWN MED DRAWER 7, Y5N ONE (10:31)
[2020-07-22] MEDS: amLODIPine BESYLATE 5 MG TABLET (FP) PO SCH (10:35)
[2020-07-22] MEDS: ASPIRIN 81 MG CHEWABLE TABLETS PO SCH (10:35)
[2020-07-22] MEDS: FOLIC ACID 1 MG TABLET (FP) PO SCH (10:35)
[2020-07-22] MEDS: PANTOPRAZOLE 40 MG TABLET PO SCH (10:35)
[2020-07-22] MEDS: ZINC SULFATE 220 MG CAPSULE (FP) PO SCH (10:36)
[2020-07-22] MEDS: URSODIOL 300 MG CAPSULE PO SCH ×2 (10:36→21:02)
[2020-07-22] MEDS: ASCORBIC ACID 500 MG TABLET (FP) PO SCH ×2 (10:36→21:02)
[2020-07-22] MEDS: LISINOPRIL 5 MG TABLET PO SCH (10:38)
[2020-07-22] MEDS: BUDESONIDE/FORMETEROL FUMARATE 160/4.5 mcg INHALER IH SCH ×2 (10:40→21:03)
[2020-07-22] MEDS: ENOXAPARIN NA (PORCINE) 40 MG/0.4 ML DISP.SYRIN SQ SCH (10:40)
[2020-07-22] MEDS: DEXAMETHASONE SOD PHOSPHATE 4 MG/1 ML VIAL IVPUSH SCH (11:42)
[2020-07-22] MEDS: TAMSULOSIN HCL 0.4 MG CAP PO SCH (15:59)
[2020-07-22] MEDS ORDERED: MAG HYDROX/AL HYDROX/SIMETH 30 ML UNIT-DOSE CUP PO ONE (19:08)
[2020-07-22] MEDS: SENNOSIDES 8.6MG TABLET (FP) PO SCH (21:02)
[2020-07-23 08:33] LABS: HEMATOCRIT 38.4 % (35.4-49); HEMOGLOBIN 12.8 GM/dL (11.7-16.9); MCH 24.9 pg (25.7-33.7); MCHC 33.5 g/dl (32.0-35.9); MEAN CELL VOLUME 74.3 fl (80-96); MEAN PLT VOLUME 8.3 fl (7.5-11.1); PLATELET COUNT 576 K/MM3 (134-434); RBC 5.16 M/mm3 (4.00-5.60); RDW 15.6 % (11.9-15.9); WHITE BLOOD COUNT 14.7 K/mm3 (4.0-10.0)
[2020-07-23 08:45] LABS: POTASSIUM 4.5 mmol/L (3.5-5.1)
[2020-07-23 08:52] LABS: ALBUMIN 2.5 g/dl (3.4-5.0); BLOOD UREA NITROGEN 26.7 mg/dL (7-18)
[2020-07-23 08:55] LABS: CREATININE 1.1 mg/dL (0.55-1.3)
[2020-07-23 08:56] LABS: BILIRUBIN,TOTAL 0.8 mg/dL (0.2-1)
[2020-07-23 08:57] LABS: TOT PROT 7.5 g/dl (6.4-8.2)
[2020-07-23 09:52] LABS: PH,URINE 6.5 (5.0-8.0); URINE APPEARANCE CLEAR; URINE BILIRUBIN NEGATIVE (NEGATIVE); URINE COLOR YELLOW; URINE GLUCOSE (UA) NEGATIVE (NEGATIVE); URINE KETONE NEGATIVE (NEGATIVE); URINE LEUK ESTERASE NEGATIVE (NEGATIVE); URINE NITRITE NEGATIVE (NEGATIVE); URINE PROTEIN TRACE (NEGATIVE)
[2020-07-23] MEDS ORDERED: CEFTRIAXONE 1 GM in DEXTROSE 5%-WATER - 50 ML IVPB SCH (10:00)
[2020-07-23] MEDS ORDERED: DEXTROSE 5%-WATER - 50 ML IVPB ONE (10:09)
[2020-07-23] MEDS ORDERED: cefTRIAXone SODIUM 1 GM VIAL ONE (10:09)
[2020-07-23] MEDS: LISINOPRIL 5 MG TABLET PO SCH (10:28)
[2020-07-23] MEDS: FOLIC ACID 1 MG TABLET (FP) PO SCH (10:30)
[2020-07-23] MEDS: URSODIOL 300 MG CAPSULE PO SCH ×2 (10:30→21:15)
[2020-07-23] MEDS: ASPIRIN 81 MG CHEWABLE TABLETS PO SCH (10:30)
[2020-07-23] MEDS: PANTOPRAZOLE 40 MG TABLET PO SCH (10:30)
[2020-07-23] MEDS: ASCORBIC ACID 500 MG TABLET (FP) PO SCH ×2 (10:30→21:15)
[2020-07-23] MEDS: ZINC SULFATE 220 MG CAPSULE (FP) PO SCH (10:30)
[2020-07-23] MEDS: DEXAMETHASONE SOD PHOSPHATE 4 MG/1 ML VIAL IVPUSH SCH (10:31)
[2020-07-23] MEDS: ENOXAPARIN NA (PORCINE) 40 MG/0.4 ML DISP.SYRIN SQ SCH (10:34)
[2020-07-23] MEDS: TAMSULOSIN HCL 0.4 MG CAP PO SCH (10:40)
[2020-07-23] MEDS: BUDESONIDE/FORMETEROL FUMARATE 160/4.5 mcg INHALER IH SCH ×2 (10:40→21:15)
[2020-07-23] MEDS: amLODIPine BESYLATE 5 MG TABLET (FP) PO SCH (10:40)
[2020-07-23 11:44] LABS: EPI CELLS 13 /uL (0-25.1); HYALINE CASTS 1 /uL (0-3.1); URINE BACTERIA 126 /uL (0-1359); URINE WBC 8 /uL (0-25.8)
[2020-07-23 13:09] LABS: URINE RBC 63 /uL (0-23.9)
[2020-07-23 20:07] LABS: HEP B CORE AB, TOT Positive (Negative)
[2020-07-23] MEDS: SENNOSIDES 8.6MG TABLET (FP) PO SCH (21:15)
[2020-07-24] MEDS: ENOXAPARIN NA (PORCINE) 40 MG/0.4 ML DISP.SYRIN SQ SCH (09:16)
[2020-07-24] MEDS: ZINC SULFATE 220 MG CAPSULE (FP) PO SCH (09:17)
[2020-07-24] MEDS: ASPIRIN 81 MG CHEWABLE TABLETS PO SCH (09:17)
[2020-07-24] MEDS: URSODIOL 300 MG CAPSULE PO SCH (09:17)
[2020-07-24] MEDS: ASCORBIC ACID 500 MG TABLET (FP) PO SCH (09:17)
[2020-07-24] MEDS: FOLIC ACID 1 MG TABLET (FP) PO SCH (09:18)
[2020-07-24] MEDS: PANTOPRAZOLE 40 MG TABLET PO SCH (09:18)
[2020-07-24] MEDS: amLODIPine BESYLATE 5 MG TABLET (FP) PO SCH (09:18)
[2020-07-24] MEDS: TAMSULOSIN HCL 0.4 MG CAP PO SCH (09:18)
[2020-07-24] MEDS: DEXAMETHASONE SOD PHOSPHATE 4 MG/1 ML VIAL IVPUSH SCH (09:19)
[2020-07-24] MEDS: LISINOPRIL 5 MG TABLET PO SCH (09:19)
[2020-07-24] MEDS: BUDESONIDE/FORMETEROL FUMARATE 160/4.5 mcg INHALER IH SCH (09:21)
[2020-07-24 14:21] VITALS: BP 144/78; PULSE 74; TEMP 97.3
[2020-07-24] MEDS ORDERED: SENNOSIDES 8.6MG TABLET (FP) PO SCH (22:00)
== END 2020-07-24 14:47 | disposition home or self-care (01) | DRG 177 ==
LOC: JER 10:57 → JERBED 12:12 → J7W 07-18 20:16
PROVIDERS: ADMIT Internal Medicine; ATTEND Family Medicine
DX: U07.1 COVID-19 (principal); J12.82 Pneumonia due to coronavirus disease 2019; B19.10 Unspecified viral hepatitis B without hepatic coma; F10.288 Alcohol dependence with other alcohol-induced disorder; R74.8 Abnormal levels of other serum enzymes; R07.9 Chest pain, unspecified; I10 Essential (primary) hypertension; E11.9 Type 2 diabetes mellitus without complications; R33.9 Retention of urine, unspecified; K76.9 Liver disease, unspecified; Z87.891 Personal history of nicotine dependence
CPT/HCPCS: 36415; 71045-TC-FY; 71275-TC; 76705-TC; 76856-TC; 80053; 80307; 81003; 82550; 82728; 83605; 83615; 83690; 83735; 83880; 84100; 84484; 85025; 85027; 85379; 85610; 85730; 86140; 86704; 86705; 86706; 86707; 86708; 86769; 86803; 87040; 87086; 87804; 87899; 93005; 93010; 94761; 99285-25; C9803; Q9967; U0003

== ENCOUNTER 2022-02-03 10:37 | Emergency (ER) | payer MEDICARE, OTHER ==
[2022-02-03 10:59] VITALS: BMI 32.8
[2022-02-03 14:01] LABS: BASO % 0.9 % (0-2.0); EOS % 6.2 % (0-4.5); HEMATOCRIT 43.5 % (35.4-49); HEMOGLOBIN 13.8 GM/dL (11.7-16.9); LYMPH % 37.2 % (8-40); MCH 25.2 pg (25.7-33.7); MCHC 31.8 g/dl (32.0-35.9); MEAN CELL VOLUME 79.1 fl (80-96); MEAN PLT VOLUME 8.7 fl (7.5-11.1); MONO % 15.7 % (3.8-10.2); PLATELET COUNT 327 10^3/uL (134-434); RBC 5.49 M/mm3 (4.00-5.60); RDW 15.6 % (11.9-15.9); WHITE BLOOD COUNT 4.5 K/mm3 (4.0-10.0)
[2022-02-03 14:03] LABS: URINE APPEARANCE CLEAR; URINE BILIRUBIN NEGATIVE (NEGATIVE); URINE COLOR YELLOW; URINE GLUCOSE (UA) NEGATIVE (NEGATIVE); URINE KETONE NEGATIVE (NEGATIVE); URINE LEUK ESTERASE NEGATIVE (NEGATIVE); URINE NITRITE NEGATIVE (NEGATIVE); URINE PROTEIN NEGATIVE (NEGATIVE); URINE UROBILINOGEN 0.2 mg/dL (0.2-1.0)
[2022-02-03 14:21] LABS: ALBUMIN 3.6 g/dl (3.4-5.0); BLOOD UREA NITROGEN 14.8 mg/dL (7-18); CALCIUM 9.5 mg/dL (8.5-10.1)
[2022-02-03 14:24] LABS: CREATININE 1.1 mg/dL (0.55-1.3)
[2022-02-03 14:26] LABS: BILIRUBIN,TOTAL 0.5 mg/dL (0.2-1); TOT PROT 7.9 g/dl (6.4-8.2)
[2022-02-03 18:34] VITALS: BP 157/62; PULSE 77; RESP 18; TEMP 97.4
== END 2022-02-03 18:36 | disposition home or self-care (01) ==
LOC: JER 10:37
DX: U07.1 COVID-19 (principal)
CPT/HCPCS: 36415; 71045-TC-FY; 76775-TC; 80053; 81003; 83880; 84484; 85025; 87086; 93005; 93010; 99285-25; C9803-CS; U0003; U0005